=== PATIENT | male | born 1940 | race Hispanic/Latino ===

== ENCOUNTER 2022-09-16 07:35 | Day surgery (SDC) | payer OTHER ==
[2022-09-14 09:15] LABS: BASOPHILS % (AUTO) 0.7 % (0.0-5.0); EOSINOPHILS % (AUTO) 3.2 % (0.0-8.0); HEMATOCRIT 33.9 % (42-54); LYMPHOCYTES % (AUTO) 21.2 % (21.0-51.0); MEAN CORPUSCULAR HEMOGLOBIN 28.6 pg (27.0-33.0); MEAN CORPUSCULAR HGB CONC 31.9 g/dL (32.0-36.0); MEAN CORPUSCULAR VOLUME 89.7 fL (79-99); MONOCYTES % (AUTO) 5.8 % (3.0-13.0); NEUTROPHILS % (AUTO) 68.7 % (40.0-77.0); PLATELET COUNT (AUTO) 237 K/uL (130-400); RED BLOOD CELL COUNT(AUTO) 3.78 MIL/uL (4.50-6.20); RED CELL DISTRIBUTION WIDTH 14.1 % (11.0-15.5); WHITE BLOOD COUNT (AUTO) 8.2 K/uL (4.8-10.8)
[2022-09-14 09:25] VITALS: BP 205/84
[2022-09-14 09:26] LABS: CREATININE 1.8 mg/dL (0.5-1.5); POTASSIUM 4.5 mmol/L (3.5-5.1)
[2022-09-14 10:02] LABS: INR 0.93 (0.85-1.15); PROTHROMBIN TIME 10.1 SEC (9.6-11.6)
[2022-09-14 10:03] LABS: PARTIAL THROMBOPLASTIN TIME 28.5 SEC (26.3-35.5)
[2022-09-14 10:22] LABS: B-TYPE NATRIURETIC PEPTIDE 67 pg/mL (0-100)
[2022-09-16] VITALS (12 sets, daily range): BP systolic 114–161; BP diastolic 51–65
[~2022-09-16] VITALS: Ht 168.9 cm; Wt 79.3 kg
[2022-09-16] MEDS ORDERED: 0.9%NACL 1000ML 1,000 ML IV ONE (07:57)
[2022-09-16] MEDS ORDERED: LEVO25CA4 PO (09:09)
[2022-09-16] MEDS ORDERED: METF-446 PO (09:09)
[2022-09-16] MEDS ORDERED: EMPA10TA PO (09:09)
[2022-09-16] MEDS ORDERED: GLIP10TA9 PO (09:09)
[2022-09-16] MEDS ORDERED: CYCL-309 PO (09:09)
[2022-09-16] MEDS ORDERED: ATOR40TA71 PO (09:09)
[2022-09-16] MEDS ORDERED: HYDR-4153 PO (09:09)
[2022-09-16] MEDS ORDERED: ASPI-1197 PO (09:09)
[2022-09-16] MEDS ORDERED: IODIXANOL 320 MG/ML 100 ML VIAL ONE (12:12)
[2022-09-16] MEDS ORDERED: HEPARIN 10,000 UNIT/10ML (1,000 UNIT/ML) VIAL ONE (12:12)
[2022-09-16] MEDS ORDERED: NITROGLYCERIN 50MG VIAL ONE (12:12)
[2022-09-16] MEDS ORDERED: FENTANYL CITRATE PF 50 MCG/1 ML 2ML VIAL ONE ×2 (12:13→14:13)
[2022-09-16] MEDS ORDERED: MIDAZOLAM HCL 1 MG/ML 2ML VIAL ONE ×2 (12:13→14:13)
[2022-09-16] MEDS ORDERED: LIDOCAINE HCL 400MG/20ML VIAL ONE (12:14)
[2022-09-16] MEDS ORDERED: HYDRALAZINE 20MG/ML VIAL ONE (13:02)
[2022-09-16] MEDS ORDERED: CLOPIDOGREL 300MG TAB ONE (13:10)
[2022-09-16] MEDS ORDERED: LABETALOL 20MG SYG IV ONE (14:16)
[2022-09-16] MEDS ORDERED: GLUCAGON 1MG KIT 1 MG ML IM PRN (14:30)
[2022-09-16] MEDS ORDERED: DEXTROSE 50%-WATER 50 ML DISP.SYRIN IV PRN (14:30)
[2022-09-16] MEDS ORDERED: 0.9%NACL 1000ML 1,000 ML IV SCH (14:30)
== END 2022-09-16 18:30 | disposition home or self-care (01) ==
LOC: DAH 07:35
PROVIDERS: ATTEND Internal Medicine Cardiovascular Disease
DX: I70.238 Atherosclerosis of native arteries of right leg with ulceration of other part of lower leg (principal); L97.818 Non-pressure chronic ulcer of other part of right lower leg with other specified severity; I70.92 Chronic total occlusion of artery of the extremities; E11.51 Type 2 diabetes mellitus with diabetic peripheral angiopathy without gangrene; I10 Essential (primary) hypertension; E78.5 Hyperlipidemia, unspecified; E03.9 Hypothyroidism, unspecified; Z79.890 Hormone replacement therapy; Z79.84 Long term (current) use of oral hypoglycemic drugs; Z79.01 Long term (current) use of anticoagulants; Z79.899 Other long term (current) drug therapy; Z98.890 Other specified postprocedural states; Z82.49 Family history of ischemic heart disease and other diseases of the circulatory system; Z79.82 Long term (current) use of aspirin; Z83.3 Family history of diabetes mellitus
CPT/HCPCS: 80048; 83880; 85025; 85610; 85730; 36415; 71045; 93005; 75710; 36247; 82948 ×2; C1894 ×2; C1769 ×7; C1760; C1893; C1887; J3010 ×2; J3490 ×2; J7030; J0360; J1644 ×2; J2250 ×2; Q9967; A4215; A4222; A4221; A4663; A4216; A4606; A4223 ×3; 36246; 75716; 99156; 99157

== ENCOUNTER 2022-10-08 05:46 | Day surgery (SDC) | payer OTHER ==
[2022-09-30 08:53] LABS: BASOPHILS % (AUTO) 0.7 % (0.0-5.0); EOSINOPHILS % (AUTO) 3.7 % (0.0-8.0); HEMATOCRIT 32.5 % (42-54); LYMPHOCYTES % (AUTO) 19.8 % (21.0-51.0); MEAN CORPUSCULAR HEMOGLOBIN 28.1 pg (27.0-33.0); MEAN CORPUSCULAR HGB CONC 31.4 g/dL (32.0-36.0); MEAN CORPUSCULAR VOLUME 89.5 fL (79-99); MONOCYTES % (AUTO) 6.8 % (3.0-13.0); NEUTROPHILS % (AUTO) 68.5 % (40.0-77.0); PLATELET COUNT (AUTO) 254 K/uL (130-400); RED BLOOD CELL COUNT(AUTO) 3.63 MIL/uL (4.50-6.20); RED CELL DISTRIBUTION WIDTH 14.3 % (11.0-15.5); WHITE BLOOD COUNT (AUTO) 8.6 K/uL (4.8-10.8)
[2022-09-30 09:12] LABS: POTASSIUM 4.3 mmol/L (3.5-5.1)
[2022-09-30 09:29] VITALS: BP 144/80
[2022-09-30 09:33] LABS: INR 0.93 (0.85-1.15)
[2022-09-30 09:34] LABS: PARTIAL THROMBOPLASTIN TIME 28.2 SEC (26.3-35.5)
[2022-09-30 09:38] LABS: B-TYPE NATRIURETIC PEPTIDE 85 pg/mL (0-100)
[2022-10-07 15:00] LABS: BASOPHILS % (AUTO) 0.8 % (0.0-5.0); EOSINOPHILS % (AUTO) 2.6 % (0.0-8.0); HEMATOCRIT 31.5 % (42-54); LYMPHOCYTES % (AUTO) 21.2 % (21.0-51.0); MEAN CORPUSCULAR HEMOGLOBIN 27.8 pg (27.0-33.0); MEAN CORPUSCULAR HGB CONC 30.8 g/dL (32.0-36.0); MEAN CORPUSCULAR VOLUME 90.3 fL (79-99); MONOCYTES % (AUTO) 6.1 % (3.0-13.0); NEUTROPHILS % (AUTO) 68.9 % (40.0-77.0); PLATELET COUNT (AUTO) 239 K/uL (130-400); RED BLOOD CELL COUNT(AUTO) 3.49 MIL/uL (4.50-6.20); RED CELL DISTRIBUTION WIDTH 14.6 % (11.0-15.5); WHITE BLOOD COUNT (AUTO) 7.2 K/uL (4.8-10.8)
[2022-10-07 15:13] LABS: CREATININE 1.7 mg/dL (0.5-1.5); POTASSIUM 4.1 mmol/L (3.5-5.1)
[2022-10-07 15:16] LABS: INR 0.93 (0.85-1.15); PROTHROMBIN TIME 9.9 SEC (9.6-11.6)
[2022-10-07 15:17] LABS: PARTIAL THROMBOPLASTIN TIME 27.6 SEC (26.3-35.5)
[~2022-10-08] VITALS: Ht 167.6 cm; Wt 78.9 kg
[2022-10-08] VITALS (8 sets, daily range): BP systolic 135–159; BP diastolic 56–84
[~2022-10-08 05:46] MED LIST: 0.9% NACL 500ML IV.SOLN 500 ML IV SCH; AMLO2.5T4 PO; ASPI-1197 PO; ATOR40TA71 PO; CYCL-309 PO; EMPA10TA PO; GLIP10TA9 PO; HYDR-4153 PO; LEVO25CA4 PO; METF-446 PO
[2022-10-08] MEDS ORDERED: 0.9%NACL 1000ML 1,000 ML IV ONE (06:28)
[2022-10-08] MEDS ORDERED: LIDOCAINE HCL 400MG/20ML VIAL ONE (07:29)
[2022-10-08] MEDS ORDERED: FENTANYL CITRATE PF 50 MCG/1 ML 2ML VIAL ONE (07:29)
[2022-10-08] MEDS ORDERED: MIDAZOLAM HCL 1 MG/ML 2ML VIAL ONE (07:29)
[2022-10-08] MEDS ORDERED: IODIXANOL 320 MG/ML 100 ML VIAL ONE (07:29)
[2022-10-08] MEDS ORDERED: NITROGLYCERIN 50MG VIAL ONE (07:30)
[2022-10-08] MEDS ORDERED: HEPARIN 10,000 UNIT/10ML (1,000 UNIT/ML) VIAL ONE (07:30)
[2022-10-08] MEDS ORDERED: NICARDIPINE 25MG INJ IV ONE (07:30)
[2022-10-08] MEDS ORDERED: HYDRALAZINE 20MG/ML VIAL ONE (08:49)
[2022-10-08] MEDS ORDERED: CLOPIDOGREL 300MG TAB ONE ×2 (09:37→09:44)
[2022-10-08] MEDS ORDERED: 0.9%NACL 1000ML 1,000 ML IV SCH (10:00)
[2022-10-08] MEDS ORDERED: CLOP-31 PO (11:01)
== END 2022-10-08 13:30 | disposition home or self-care (01) ==
LOC: DAH 05:46
PROVIDERS: ATTEND Internal Medicine Cardiovascular Disease
DX: I70.238 Atherosclerosis of native arteries of right leg with ulceration of other part of lower leg (principal); I70.92 Chronic total occlusion of artery of the extremities; L97.818 Non-pressure chronic ulcer of other part of right lower leg with other specified severity; I10 Essential (primary) hypertension; E78.5 Hyperlipidemia, unspecified; E03.9 Hypothyroidism, unspecified; I45.10 Unspecified right bundle-branch block; Z79.01 Long term (current) use of anticoagulants; Z79.899 Other long term (current) drug therapy; Z79.84 Long term (current) use of oral hypoglycemic drugs; Z79.82 Long term (current) use of aspirin; Z98.890 Other specified postprocedural states
CPT/HCPCS: 80048 ×2; 83880; 85025 ×2; 85610 ×2; 85730 ×2; 36415 ×2; 93005; 75710; 82948 ×2; C9774; C1887 ×2; C1769 ×5; C1724; C1894; C1725; C1727; J3010; J3490 ×3; J7030; J0360; J1644; J2250; Q9967; A4215; A4222; A4221; A4663; A4216; A4606; A4223 ×3; 75774; 96360; 96361; 99156; 99157

== ENCOUNTER → 2024-03-22 | Outpatient (CLI) | payer OTHER ==
[~2024-03-22] MED LIST changes: -0.9% NACL 500ML IV.SOLN 500 ML IV SCH; +CLOP-31 PO; -HYDR-4153 PO; +HYDR25TA67 PO
== END | disposition home or self-care (01) ==
LOC: SHCH 07:35
PROVIDERS: ATTEND Internal Medicine Cardiovascular Disease
DX: R01.1 Cardiac murmur, unspecified (principal)
CPT/HCPCS: 93306

== ENCOUNTER → 2025-03-05 | Outpatient (CLI) | payer OTHER ==
[~2025-03-05] MED LIST changes: +GLIP10TA16 PO; -GLIP10TA9 PO; -LEVO25CA4 PO; +LEVO25CA5 PO
--- NOTE | 2025-03-06 05:02 | HMCIMG ---
EXAMINATION: DUPLEX ULTRASOUND EXAMINATION OF THE BILATERAL LOWER EXTREMITY ARTERIES. CLINICAL HISTORY: Peripheral vascular disease. COMPARISON: None. FINDINGS: Peak systolic velocities within the right lower arteries are as follows: Common femoral artery: 186 cm/s. Superficial femoral artery: 140 cm/s at proximal, 143 cm/s at mid, and 131 cm/s at distal segments. Popliteal artery: 213 cm/s at proximal and 119 cm/s at distal segments. Posterior tibial artery: 29 cm/s. Anterior tibial artery: 69 cm/s. Dorsalis pedis artery: 30 cm/s. The right lower limb arteries demonstrate triphasic to biphasic waveforms in all arteries other than the posterior tibial, anterior tibial, and dorsalis pedis arteries which demonstrate monophasic waveforms. Peak systolic velocities within the left lower arteries are as follows: Common femoral artery: 147 cm/s. Superficial femoral artery: 113 cm/s at proximal, 122 cm/s at mid, and 156 cm/s at distal segments. Popliteal artery: 303 cm/s at proximal and 265 cm/s at distal segments. Posterior tibial artery: 46 cm/s. Anterior tibial artery: 41 cm/s. Dorsalis pedis artery: 36 cm/s. The left lower limb arteries demonstrate triphasic to biphasic waveforms in all arteries other than the posterior tibial, anterior tibial, and dorsalis pedis arteries which demonstrate monophasic waveforms. There is intimal wall thickening and multilevel atherosclerosis in both the lower limb arteries. There are calcified plaques in the right common femoral and left distal superficial femoral arteries causing about 20% to 49% stenosis. There are raised velocities in the bilateral popliteal arteries with 50% to 80% stenosis and more than 80% stenosis in the left proximal popliteal artery. IMPRESSION: Mild intimal wall thickening and multilevel atherosclerosis in both the lower limb arteries. Both lower limb arteries demonstrate triphasic to biphasic waveforms other than the bilateral posterior tibial, anterior tibial, and dorsalis pedis arteries which demonstrate monophasic waveforms. Calcified plaques in the right common femoral and left distal superficial femoral arteries causing about 20% to 49% stenosis. Raised velocities in the bilateral popliteal arteries with 50% to 80% stenosis and more than 80% stenosis in the left proximal popliteal artery. Recommend CT/MR angiogram. /Forgan
== END | disposition home or self-care (01) ==
LOC: RAH 12:44
PROVIDERS: ATTEND Internal Medicine
DX: I70.203 Unspecified atherosclerosis of native arteries of extremities, bilateral legs (principal)
CPT/HCPCS: 93925